=== PATIENT | male | born 1975 | race American Indian/Alaskan Native ===

== ENCOUNTER 2024-02-13 18:56 | Emergency (ER) | payer OTHER ==
[2024-02-13] MEDS: Take Home: Acetaminophen/HYDROcodone 325-5 MG, 5 Tab Pack PO ONE (20:35)
== END 2024-02-13 20:50 | disposition home or self-care (01) ==
LOC: VM.ED 18:56
DX: S90.121A Contusion of right lesser toe(s) without damage to nail, initial encounter (principal); Z88.0 Allergy status to penicillin; Z88.1 Allergy status to other antibiotic agents; W20.8XXA Other cause of strike by thrown, projected or falling object, initial encounter; Y99.0 Civilian activity done for income or pay
CPT/HCPCS: 73630; 99283; A9270

== ENCOUNTER 2025-06-26 09:04 | Emergency (ER) | payer OTHER ==
[2025-06-26] MEDS: Fluorescein 1 MG Ophth Strip EYELF ONE (09:19)
[2025-06-26] MEDS: Tetracaine HCl/PF 0.5% 4 ML Bottle EYELF ONE (09:19)
== END 2025-06-26 09:30 | disposition home or self-care (01) ==
LOC: VM.ED 09:04 → SUPCPDRO 09:04 → VM.ED 09:30
DX: S05.02XA Injury of conjunctiva and corneal abrasion without foreign body, left eye, initial encounter (principal); Z88.0 Allergy status to penicillin; Z88.1 Allergy status to other antibiotic agents; X58.XXXA Exposure to other specified factors, initial encounter
CPT/HCPCS: 99282; 99283; J3490